=== PATIENT | male | born 1980 | race Caucasian/White ===

== ENCOUNTER 2017-08-27 13:33 | Emergency (ER) | payer SELFPAY ==
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
[2017-08-27] MEDS ORDERED: Ibuprofen TAB* 400 MG PO ONE (14:21)
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
[2017-08-27 15:36] VITALS: BP 190/90
== END 2017-08-27 15:47 | disposition home or self-care (01) ==
LOC: UCEAST 13:33
DX: S00.03XA Contusion of scalp, initial encounter (principal); S20.229A Contusion of unspecified back wall of thorax, initial encounter; Y04.2XXA Assault by strike against or bumped into by another person, initial encounter; Y93.89 Activity, other specified; Y92.219 Unspecified school as the place of occurrence of the external cause; Y99.0 Civilian activity done for income or pay; M54.2 Cervicalgia; I10 Essential (primary) hypertension; Z88.0 Allergy status to penicillin; Z87.891 Personal history of nicotine dependence; Z82.49 Family history of ischemic heart disease and other diseases of the circulatory system; Z82.61 Family history of arthritis
CPT/HCPCS: 70450; 70486; 72125; 72128; 99212; A9270-GY; G0463